=== PATIENT | female | born 1955 | race Two or more races ===

== ENCOUNTER 2024-09-22 08:50 | Day surgery (SDC) | payer MEDICARE, MEDICAID, SELFPAY ==
[2024-09-20 07:58] VITALS: BMI 30.2
[2024-09-20 08:56] LABS: Basophils % (Auto) 1 % (0-2.5); Eosinophils # (Auto) 0.6 Thou/mm3 (0.0-0.5); Eosinophils % (Auto) 7 % (0-10); Hemoglobin 14.3 g/dL (12.0-16.0); Immature Granulocytes % (Auto) 0 % (0-0); Immature Granulocytes Auto 0.03 Thou/mm3 (0.00-0.00); Lymphocytes # (Auto) 2.3 Thou/mm3 (1.0-4.8); Lymphocytes % (Auto) 29 % (10-50); Mean Corpuscular HGB Conc 32.5 g/dl (31.0-37.0); Mean Corpuscular Hemoglobin 28.7 pg (25.0-35.0); Mean Corpuscular Volume 88 fL (80-100); Monocytes # (Auto) 0.7 Thou/mm3 (0.0-0.8); Monocytes % (Auto) 9 % (0-12); Neutrophils # (Auto) 4.5 Thou/mm3 (1.8-7.7); Neutrophils % (Auto) 55 % (37-80); Nucleated Red Blood Cell % 0 /100 WBC (0); Platelet Count 272 Thou/mm3 (140-440); RDW Standard Deviation 40.7 fL (36.4-46.3); Red Blood Count 4.98 Miln/mm3 (4.00-5.20); White Blood Count 8.1 Thou/mm3 (3.6-11.0)
[2024-09-20 09:15] LABS: Alanine Aminotransferase 13 U/L (10-49); Albumin, Serum 4.6 gm/dL (3.4-4.8); Albumin/Globulin Ratio 1.8 (1.2-2.2); Alkaline Phosphatase 85 U/L (46-116); Anion Gap 6 (7-16); Aspartate Amino Transferase 14 U/L (0-34); BUN/Creatinine Ratio 22 Ratio (12-20); Bilirubin,Total 0.5 mg/dL (0.3-1.2); Blood Urea Nitrogen 13 mg/dL (9-23); Calcium 9.4 mg/dL (8.3-10.6); Calcium (Corrected) 9.4 mg/dL (8.5-10.1); Carbon Dioxide 30.2 mMol/L (20.0-31.0); Chloride 104 mMol/L (98-107); Creatinine (Component) 0.6 mg/dL (0.6-1.3); Estimated Creatinine Clearance 88.5 mL/min (>60); Globulin 2.6 gm/dL (2.3-3.5); Glucose 108 mg/dL (74-106); Osmolality,Calculated 280 (275-295); Potassium 4.3 mMol/L (3.4-5.1); Sodium 140 mMol/L (136-145); Total Protein 7.2 gm/dL (5.7-8.2); eGFR > 60 See Note
--- NOTE | 2024-09-21 14:45 | SUR.PREOP ---
Pt notified to come in at 0900 tomorrow for preop.
[2024-09-22] VITALS (8 sets, daily range): BP systolic 131–168; BP diastolic 59–75; PULSE 60–89; RESP 12–20; TEMP 36.1–36.3; O2SAT 95–100; BMI 29.9
[2024-09-22] MEDS: RINGERS LACTATED 1000 ML 1,000 ML 20 ML IV (09:54)
--- NOTE | 2024-09-22 11:09 | SUR.PHASEI ---
1109: Pt. AAOx4, vitals stable, breathing unlabored, no complaint of pain or nausea, dressing to right breast CDI, no active bleed noted, report received from MD Alberto and Phyllis SNEED.
--- NOTE | 2024-09-22 11:10 | PD.SUROPNT ---
Date of Procedure 09/22/24 Pre Op Diagnosis Right breast mass at the outer and lower quadrant Post Op Diagnosis Right breast mass at outer lower quadrant Procedure Right breast lumpectomy Findings Hard mass between 7 and 8:00 location of right breast with 2 adjacent calcified nodules Procedure Description Patient brought into the operating room in supine position. After administration of general endotracheal anesthesia, patient's right breast prepped and draped in standard surgical manner. Patient was palpated noted to have a mass at the outer and lower quadrant of right breast. After administration of local anesthesia an approximately 4 cm elliptical incision was made and circumferential flaps were raised. The underlying breast mass was circumferentially dissected out surrounding tissue. Patient was noted to have an approximately 3 cm firm mass with 2 adjacent calcified nodules. The lump of breast was removed. Marking sutures placed to orient the pathologist. The wound was washed and irrigated. Hemostasis was adequate and satisfactory. Deep breast tissue reapproximated with interrupted sutures using 2-0 Vicryl. Subcutaneous tissue closed with interrupted sutures using 2-0 Vicryl and the incision was closed with 4-0 Monocryl in subcuticular fashion. Dermabond and pressure dressings applied. Patient tolerated procedure well. She was extubated, breathing spontaneously and without difficulty and was transferred to postanesthesia care in stable condition. Instruments, needles and sponge counts were reported to be correct x 2. Anesthesia GETA and local Pathology / specimen Other (Right breast mass) Estimated Blood Loss 2 Condition Stable Disposition PACU Surgeon Luis Leonard MD Surgical Staff Operation Date: 09/22/24 11:00 Case Staff LEAD ELECTRICAL CONTROLS ENGINEER: Alexander Alberto RNspecial events coordinator: Lupe Santiago
--- NOTE | 2024-09-22 11:47 | SUR.PHASEII ---
pt awake, alert, able to follow commands, breathing unlabored, VS stable, report from Citlalli SNEED
--- NOTE | 2024-09-22 12:25 | SUR.PHASEII ---
pt awake, alert, able to follow commands, breathing unlabored, dressing to right breast clean, dry, and intact, discharge instructions given with family member present, pt able to dress self and ambulate to wheelchair with steady gait, pt discharged via wheelchair with all belongings and copies of discharge paperwork.
== END 2024-09-22 12:25 | disposition home or self-care (01) ==
PROVIDERS: Anesthesiology; PCP Family Medicine; Referring Provider Surgery; Visit Provider Surgery
PROC: (CPT 19301; principal; 2024-09-22 10:45)
DX: D05.11 Intraductal carcinoma in situ of right breast (principal)
CPT/HCPCS: 19301; 36415; 80053; 85025; A4217; A4649; J0690; J1100; J2704; J2765; J3010; J3490; J7120

== ENCOUNTER 2024-11-21 10:11 | Outpatient (RCR) | payer MEDICARE, MEDICAID, SELFPAY ==
--- NOTE | 2024-10-27 09:55 | CTCCONSULT_ITS ---
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 Darrell Giraldo MD Referring physician. Luis Leonard MD History of Present Illness: Patient is a 69-year-old lady who had previously had a negative biopsy of right breast mass in 2021, had mammogram 06/01/2024 revealing nodule right breast which she appeared solid on ultrasound 07/12/2024. Clinically this felt hard between 7 and 8:00 location with 2 calcified adjacent nodules. 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 ER/AL were both strongly positive, margins were negative for carcinoma. Reviewed by [facility] which concurred. Patient now referred for radiation therapy. Past Medical History: High blood pressure seizures history of CVA Meds. Lisinopril naproxen omeprazole Family history. Father had prostate cancer Social History: Patient is retired disabled; denies smoking drinking bilingual born in [place] lives in [place] Review of Systems: Has experienced headaches heartburn muscle pain felt breast lump Physical Exam: General: Adequate nourished appearing lady no acute distress HEENT: Atraumatic normocephalic extraocular intact no oral lesion no cervical or supraclavicular adenopathy. CV: Chest clear to auscultation regular rate and rhythm; right breast well- healed scar outer quadrant of the right breast no masses felt in either breast ABD: Soft no organomegaly or tenderness EXT: No cyanosis clubbing or edema Assessment:1. DCIS receptor positive right breast status post lumpectomy performed Dr Leonard with clear margins. 2. Radiation therapy was discussed 3 weeks 4000 cGy with possibility of 1 week E boost depending on skin reaction. Side effects discussed. 3. Estrogen modulators such as tamoxifen wth receptors being positive was discussed with patient as well. Will refer patient to medical oncologist Dr. Rhianna 4. Informed patient that recent studies suggest that someone in her age group radiation therapy is optional when on estrogen modulator since radiation therapy will improve disease-free but not overall survival. Patient opts to have radiation therapy. 5. Thank you very much for allowing me to evaluate and manage this patient. Cc: Luis Giraldo MD Electronically signed by: Juan Rodriguez MD, DABR 10/27/2024 9:53 AM
--- NOTE | 2024-10-27 10:21 | CTCTXPLN_ITS ---
[facility] [address] [place], [place] [address] Physician Clinical Treatment Planning Note Date of Service: 10/27/2024 Name: MARIANELA Jaramillo.: 1955 The patient has agreed to proceed with Radiation therapy. Tests and supporting medical records were interpreted to assist in defining the tumor location and extent of disease. Further imaging will be necessary to contour and delineate the volume to which the XRT will be provided. A. Treatment Intent: Curative B. Modality: 15 MV C. Requested Technique: 3D D. Treatment Site: Right breast E. Critical structures to be contoured on plan: F. In order to accomplish this plan, I am ordering/Prescribing the followin. Simulations (s) will be performed to accomplish a reproducible treatment position, to determine optimal treatment portals/beam arrangements, to design beam modifying devices and verify treatment portals on patient prior to the commencement of Radiation Therapy. Right breast 2. evices; for immobilization and beam shapin. CT Guidance for placement of XRT stern Scan area: 4. Portal images Frequency: 5. Invivo transit dose measurement once per week on all VMAT patients. 6. Special Physics Consult Requested for: 7. Other requests: G. Dose Objectives: Curative Electronically signed by: Juan Rodriguez M.D. 10/27/2024 10:18 AM
--- NOTE | 2024-10-27 10:23 | CTCTXPLNST_ITS ---
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 Pt Treatment Intent: curative palliative other: Stage: Procedure CPT # Ordered Spec. Procedure 75570 Bañuelos Complex (set-up) 84384 R breast/E boost 2 Bañuelos Simple 83571 1 IMRT Plan 56100 MLC Devices VMAT 45575 Bañuelos 3 D 02422 1 1TRTMT dev Complex 86091 Vaklok/2F/E boost 4 TRTMT dev simple 56326 1 Basic Sergei 23228 5 Special Dosimetry 03699 Spec Physics 60117 Port Films 91209 3 SRS Cranial/1FX 91899 SBR 5 FX or Less /ex: 5 = 5 fx 80338 IMRT Simple 22824 IMRT Complex 51934 IGRT 63391 Rad del com 6- 91867 Rad del com 11- 00833 5005 20 Cont Med Physics 07085 4 Treatment Planning 69111 1 Rad del com 20 mev 84316 Rad del inter 01-31 00525 Rad del inter 07-12 67519 Rad del simple 6- 77875 Rad del simple 07-12 83976 Special Port Plan 58673 TRTMT dev inter 61734 Isodose Complex 54575 Isodose simple 47265 Resp Motion Mgmt Simulation 22765 Placement of Fiducial Markers 30608 Electronically Signed By: Juan Rodriguez MD, LEATHAR 10/27/2024 10:21 AM
== END 2024-11-21 23:59 | disposition home or self-care (01) ==
LOC: SCTC 10:11
PROVIDERS: PCP Family Medicine; Referring Provider Surgery; Visit Provider Radiology Therapeutic Radiology
DX: Z51.0 Encounter for antineoplastic radiation therapy (principal); D05.11 Intraductal carcinoma in situ of right breast; Z17.0 Estrogen receptor positive status [ER+]; Z17.21 Progesterone receptor positive status; Z90.11 Acquired absence of right breast and nipple
CPT/HCPCS: 77014; 77280; 77290; 77295; 77300; 77334; 77412; 99213; G0463

== ENCOUNTER 2024-12-16 10:15 | Outpatient (RCR) | payer MEDICARE, MEDICAID, SELFPAY ==
--- NOTE | 2024-11-28 10:26 | CTCCONSULT_ITS ---
Patient: MARIANELA ANTHONY : 1955 MR#: [id number] Page 2 of 2 CONSULTATION NOTE DATE OF CONSULTATION: 11/28/2024 NAME: MARIANELA ANTHONY ACCOUNT: [id number] : 1955 AGE: 69 REFERRING PHYSICIAN: Darrell Giraldo MD PRIMARY PHYSICIAN: REASON FOR VISIT: New DCIS ONCOLOGY HISTORY: DIAGNOSIS: Intraductal carcinoma in situ of right breast [ICD10] D05.11 DATE OF DIAGNOSIS: 08/26/2024 PATHOLOGY: ER positive DCIS STAGE/TNM: Stage 0 DCIS TREATMENT HISTORY: Care?Plan Start?Date Cycle Day Intent anastrozole started on 11/28/2024--11/28/2029 HISTORY OF PRESENT ILLNESS: Patient is 69-year-old woman diagnosed with DCIS in August 2024. Patient had a negative biopsy of the right breast in 2021. On May 2024 patient had a nodule in the right breast. Patient had a lumpectomy which showed DCIS grade 2 ER/IN were both strongly positive and margins were negative. Patient is receiving radiation and referred to oncology for antiendocrine therapy. 69-year-old male OTHER MEDICAL HISTORY/CONDITIONS: HYPERTENSION HX?SEIZURES? HX?STROKE C SECTION X1 HYSTERECTOMY RIGHT LUMPECTOMY BIOPSY 09/22/24 FAMILY HISTORY: Father:?FATHER?HX?PROSTATE?CANCER Mother:?DENIES Sibling:?DENIES Children:?DENIES Cancer History:?RIGHT BREAST CANCER DX 09/22/24 SOCIAL HISTORY: Occupational?History:?DISABLED Education?Level:?Completed 11th grade Marital?Status:? 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 lisinopril - 20 mg Twice a Day 2. naproxen - 500 mg As directed 3. omeprazole - 40 mg Daily?Palabra Meds? Medications Last Reconciled by Megan Gomes RN on 11/28/2024 ALLERGIES: codeine phosphate; CODEINE PHOSPHATE REVIEW OF SYSTEMS: A complete 14-point review of systems was performed and is negative except as noted in interval history. PHYSICAL EXAMINATION: VITAL SIGNS: Temperature?97.8, B/P?162/88, Height?60?inches, Oxygen?Saturation?96% Weight?170?lbs PAIN: 0 - No pain ECOG Performance Status: 0 - Asymptomatic and fully active GENERAL APPEARANCE: Appears well, in no apparent distress, appropriately interactive. HEENT: Normocephalic, no temporal wasting, normal conjunctiva, no scleral icterus, normal hearing, lips without lesions, neck normal range of motion. CARDIOVASCULAR: Not assessed. PULMONARY: Normal respiratory effort, no respiratory distress or use of accessory muscles, speaking in full sentences, no tachypnea. EXTREMITIES: No pedal edema or cyanosis. SKIN: Normal skin appearance. NEUROLOGIC: Alert and oriented x4. PSHYCHIATRIC: Appropriate affect, mood normal, behavior normal, intact thought and speech. Breast examination showed well-healing surgical site. No palpable masses in either breast LABORATORY DATA: I have personally reviewed and interpreted each of the patient?s relevant lab tests, abnormal findings are below: Date ASSESSMENT/PLAN: Right breast DCIS Agree with lumpectomy and radiation Advised patient to start anastrozole once radiation is complete Calcium and vitamin D3 daily Plan for total 5 years for prophylaxis RTC in I will see her back in the clinic in 3 months. Patient to start anastrozole once radiation is complete ORDERS: Order # Description [id number] Comprehensive Metabolic Panel - 12 + CBC with Auto Diff + [id number] DXA L-Spine and Hip [id number] Follow Up 3 Months RETURN TO CLINIC: I will see her back in the clinic in 3 months. BILLING AND COMPLIANCE: I reviewed external records from providers outside my specialty as summarized above. I spent a total of 50 minutes on this patient?s care on the day of their visit excluding time spent related to any billed procedures. This time includes time spent with the patient as well as time spent documenting in the medical record, reviewing patients records and tests, obtaining history, placing orders, communicating with other healthcare professionals, counseling the patient, family or caregiver, and/or care coordination for the diagnoses above. Electronically Signed by: Quinn Moctezuma MD T: 10:23 AM CC: PCP: Referring: Darrell Giraldo This document was completed utilizing speech recognition software. Grammatical errors, random word insertions, pronoun errors, and incomplete sentences are an occasional consequence of this system due to software limitations, ambient noise, and hardware issues. Any formal questions or concerns about the content, text or information contained within the body of this dictation should be directly addressed to the provider for clarification.
--- NOTE | 2024-12-12 10:57 | CTCTRTNOTE_ITS ---
[facility] [address] [place], [place] [address] Weekly Management Date: 12/12/2024 ?? Name: MARIANELA JEFFRIESDO Jaramillo.: 1955 A. Patient is currently at 200 cGy. Getting final boost B. Patient is tolerating treatment well. C. Resume radiation therapy. Completes XRT this Thursday. Electronically signed by: Juan Rodriguez M.D. 12/12/2024 10:54 AM
== END 2024-12-21 23:59 | disposition home or self-care (01) ==
LOC: SCTC 10:15
PROVIDERS: PCP Family Medicine; Referring Provider Family Medicine; Visit Provider Internal Medicine Hematology & Oncology
DX: Z51.0 Encounter for antineoplastic radiation therapy (principal); D05.11 Intraductal carcinoma in situ of right breast; Z17.0 Estrogen receptor positive status [ER+]
CPT/HCPCS: 77290; 77300; 77332; 77336; 77412; 77417; 99213; G0463

== ENCOUNTER → 2025-01-02 | Outpatient (CLI) | payer MEDICARE, MEDICAID, SELFPAY ==
--- NOTE | 2025-01-02 14:00 | XR_ITS ---
Examination: Bone densitometry Date and time of exam:January 02, 2025 1437 hours INDICATIONS: Hysterectomy age 40 Technique: Lumbar spine and hip total bone mineralization values of an calculated. Peak reference and age match control results have been displayed. Findings: Lumbar spine total bone mineralization is0.801 gm/cm2. This is 2.2 standard deviations below peak reference. This is 0.2 standard deviations below age-matched controls. Hip total bone mineralization is 0.837 gm/cm2 This is 0.9 standard deviations below peak reference. This is 0.4 standard deviations above age-matched controls Impression: There is osteopenia based on lumbar spine measurements. There is osteoporosis based on hip measurements
== END | disposition home or self-care (01) ==
LOC: CDIM 13:48
PROVIDERS: Referring Provider Internal Medicine Hematology & Oncology; Visit Provider Internal Medicine Hematology & Oncology
DX: M85.88 Other specified disorders of bone density and structure, other site (principal); M81.0 Age-related osteoporosis without current pathological fracture
CPT/HCPCS: 77080

== ENCOUNTER 2025-01-18 13:57 | Outpatient (RCR) | payer MEDICARE, MEDICAID, SELFPAY ==
--- NOTE | 2024-12-29 10:20 | CTCTSUMM_ITS ---
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 (C) Concomitant Chemotherapy: No (D) Radiation DatesTreatment Prescription (9) E boost Electron boost 15 MeV E- 1,000 cGy 5 200 cGy Approved R breast 2 FIELD SEG Mixed Mode 4,005 cGy 15 267 cGy Approved (E) All stern were treated using customized MLC Blocks (F) Finding at Discharge: Seen for first follow-up on 12/29/2024. There was good skin reaction which was being recovered from the time off. (G) Discharge Instructions and F/U Appt was given: The patient was also advised to continue follow-up with Dr. Moctezuma and primary care physician: cc: Darrell Leonard MD Electronically signed by: Juan Rodriguez MD, LEATHAR 12/29/2024 10:17 AM
== END 2025-01-21 23:59 | disposition home or self-care (01) ==
LOC: SCTC 13:57
PROVIDERS: PCP Family Medicine; Referring Provider Family Medicine; Visit Provider Internal Medicine Hematology & Oncology
DX: D05.11 Intraductal carcinoma in situ of right breast (principal)
CPT/HCPCS: 99213; G0463

== ENCOUNTER 2025-02-27 13:39 | Outpatient (RCR) | payer MEDICARE, MEDICAID, SELFPAY ==
--- NOTE | 2025-03-05 07:05 | CTCFLWUP_ITS ---
Patient: BLANCA ANTHONY : 1955 Page 4 of 6 FOLLOW UP NOTE DATE OF SERVICE: 02/27/2025 NAME: BLANCA ANTHONY ACCOUNT: [id number] : 1955 AGE: 69 INTERVAL HISTORY: Blanca Anthony, a female with history of stage 0 breast cancer (DCIS positive), presented with pain during daily activities and for osteoporosis follow-up. She recently completed radiation therapy. December 2024 bone density test showed osteoporosis in hips and osteopenia in spine. Plan includes Prolia in jections every 6 months pending dental clearance, continued calcium and vitamin D supplements, right breast mammogram, lymphedema clinic referral, and activity modifications to reduce right arm strain. Subjective: Chief Complaint - Pain when grooming, mopping, washing dishes, and doing laundry - Follow-up for osteoporosis and breast cancer treatment Objective: Laboratory, Imaging, and Diagnostic Test Results - Bone density test (December 2024): - Hips: Osteoporosis - Spine: Osteopenia - Mammogram (May 2024): Completed (right breast) ONCOLOGY HISTORY: DIAGNOSIS: Intraductal carcinoma in situ of right breast [ICD10] D05.11 DATE OF DIAGNOSIS: 08/26/2024 PATHOLOGY: ER positive DCIS STAGE/TNM: Stage 0 DCIS TREATMENT HISTORY: Care?Plan Start?Date Cycle Day Intent PROLia?60mg?every?6?months 02/27/2025 1 180 Maintenance HISTORY OF PRESENT ILLNESS: Patient is 69-year-old woman diagnosed with DCIS in August 2024. Patient had a negative biopsy of the right breast in 2021. On May 2024 patient had a nodule in the right breast. Patient had a lumpectomy which showed DCIS grade 2 ER/WA were both strongly positive and margins were negative. Patient is receiving radiation and referred to oncology for antiendocrine therapy. 69-year-old male OTHER MEDICAL HISTORY/CONDITIONS: HYPERTENSION HX?SEIZURES HX?STROKE C SECTION X1 HYSTERECTOMY RIGHT LUMPECTOMY BIOPSY 09/22/24 FAMILY HISTORY: Father:?FATHER?HX?PROSTATE?CANCER Mother:?DENIES Sibling:?DENIES Children:?DENIES Cancer History:?RIGHT BREAST CANCER DX 09/22/24 SOCIAL HISTORY: Occupational?History:?DISABLED Education?Level:?Completed 11th grade Marital?Status:? 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 anastrozole - 1 mg 1 tab Daily 2. lisinopril - 20 mg Twice a Day 3. naproxen - 500 mg As directed 4. omeprazole - 40 mg Daily 5. TylenoL - 500 mg 1 tab As needed Medications Last Reconciled by Ida Herrmann MA on 02/27/2025 ALLERGIES: codeine phosphate; CODEINE PHOSPHATE REVIEW OF SYSTEMS: A complete 14-point review of systems was performed and is negative except as noted in interval history. PHYSICAL EXAMINATION: VITAL SIGNS: Temperature?97.4, B/P?152/90, Oxygen?Saturation?97% PAIN: 8 - Very severe pain ECOG Performance Status: 1 - Symptomatic; ambulatory; restricted in strenuous activity GENERAL APPEARANCE: Appears well, in no apparent distress, appropriately interactive. HEENT: Normocephalic, no temporal wasting, normal conjunctiva, no scleral icterus, normal hearing, lips without lesions, neck normal range of motion. CARDIOVASCULAR: Not assessed. PULMONARY: Normal respiratory effort, no respiratory distress or use of accessory muscles, speaking in full sentences, no tachypnea. EXTREMITIES: No pedal edema or cyanosis. SKIN: Normal skin appearance. NEUROLOGIC: Alert and oriented x4. PSHYCHIATRIC: Appropriate affect, mood normal, behavior normal, intact thought and speech. Breast examination showed well-healing surgical site. No palpable masses in either breast LABORATORY DATA: I have personally reviewed and interpreted each of the patient?s relevant lab tests, abnormal findings are below: Date ASSESSMENT/PLAN: Assessment and Plan: Blanca Anthony, female patient with history of stage 0 breast cancer (DCIS positive), recently completed radiation therapy, presenting with osteoporosis in hips and osteopenia in spine, experiencing pain with daily activities. Discomfort and pain from lymphedema Patient have pain and discomfort in right arm Plan ? refer to lymphedema clinic No redness or loacalised tenderness . Osteoporosis/Osteopenia Assessment: Recent bone density test in revealed osteoporosis in the hips and osteopenia in the spine, with particular weakness noted in the hips. Patient has not yet obtained dental clearance for medication initiation but has an upcoming dental appointment this month. No reported dental problems. Plan: - Prescribe Prolia (denosumab) injection every 6 months for 5 years - Continue calcium and vitamin D supplements daily - Obtain dental clearance before initiating Prolia - Patient to call dental office to complete clearance form - Initiate Prolia upon receipt of dental clearance Stage 0 Breast Cancer (DCIS positive) - Post-treatment Assessment: Patient has completed radiation therapy for stage 0 breast cancer with positive DCIS. Treatment was well-tolerated. Patient reports pain when performing daily activities such as grooming, mopping, washing dishes, and doing laundry, particularly with the right arm. Plan: - Order mammogram for right breast (6-month post-treatment follow-up) - Refer to lymphedema clinic for massage therapy - Advise patient to: - Avoid lifting heavy objects with the right arm - Perform tasks slowly, especially with the right hand - Use left hand or wheeled laundry basket for laundry - Avoid heavy work - Cook, but minimize use of right hand - Follow-up appointment in 6 months If pain/discomfort do not get better advised to follow with pcp/er For other casues of pain including dvt . 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 We also discussed the option of no treatment and the possibility of clinical trial participation, if applicable. All questions were addressed, and they demonstrated understanding. They provided informed consent to proceed with the proposed plan of care. BILLING AND COMPLIANCE: I reviewed external records from providers outside my specialty as summarized above. I spent a total of 50 minutes on this patient?s care on the day of their visit excluding time spent related to any billed procedures. This time includes time spent with the patient as well as time spent documenting in the medical record, reviewing patients records and tests, obtaining history, placing orders, communicating with other healthcare professionals, counseling the patient, family or caregiver, and/or care coordination for the diagnoses above. Electronically Signed by: Quinn Moctezuma MD T: 7:02 AM CC: PCP: Referring: Darrell Giraldo This document was completed utilizing speech recognition software. Grammatical errors, random word insertions, pronoun errors, and incomplete sentences are an occasional consequence of this system due to software limitations, ambient noise, and hardware issues. Any formal questions or concerns about the content, text or information contained within the body of this dictation should be directly addressed to the provider for clarification.
== END 2025-03-23 23:59 | disposition home or self-care (01) ==
LOC: SCTC 13:39
PROVIDERS: PCP Family Medicine; Referring Provider Family Medicine; Visit Provider Internal Medicine Hematology & Oncology
DX: D05.11 Intraductal carcinoma in situ of right breast (principal); Z17.0 Estrogen receptor positive status [ER+]; Z17.21 Progesterone receptor positive status; Z90.11 Acquired absence of right breast and nipple; Z79.811 Long term (current) use of aromatase inhibitors; Z92.3 Personal history of irradiation; M81.0 Age-related osteoporosis without current pathological fracture; I89.0 Lymphedema, not elsewhere classified
CPT/HCPCS: 99212; G0463

== ENCOUNTER → 2025-03-22 | Outpatient (CLI) | payer MEDICARE, MEDICAID, SELFPAY ==
--- NOTE | 2025-03-22 10:15 | XR_ITS ---
Examination: Screening digital mammography, unilateral right Computer aided detection 3-D breast Tomosynthesis, unilateral Date and time of exam: March 22, 2025 1031 hours Compared to mammograms dating to May 02, 2015 Indication: Screening Technique: Nonmagnified MLO, CC views of the right breast to been obtained, reconstructed from 3-D Tomosynthesis images. R2 computer aided detection program utilized for evaluation of suspicious masses and/or abnormal calcifications. 3-D Tomosynthesis images obtained. Findings: Scattered areas of fibrovascular density. Breast biopsy marker upper outer right breast Benign calcifications, no definite suspicious masses Impression: BI-RADS Category 0: Incomplete: Need additional imaging evaluation Given the the right breast sonogram report July 12, 2024, 8:00 nodule 17 x 13 mm, 9:00 nodule 12 x 13 mm, 9:00 nodule 9 x 9 mm, 10:00 nodule 8 x 7 mm, recommend follow-up right breast sonography to document stability of these nodules.
== END | disposition home or self-care (01) ==
PROVIDERS: PCP Family Medicine; Referring Provider Internal Medicine Hematology & Oncology; Visit Provider Internal Medicine Hematology & Oncology
DX: Z12.31 Encounter for screening mammogram for malignant neoplasm of breast (principal); N63.15 Unspecified lump in the right breast, overlapping quadrants; N63.21 Unspecified lump in the left breast, upper outer quadrant; N63.13 Unspecified lump in the right breast, lower outer quadrant
CPT/HCPCS: 77063; 77067

== ENCOUNTER → 2025-04-11 | Outpatient (CLI) | payer MEDICARE, MEDICAID, SELFPAY ==
--- NOTE | 2025-04-11 08:39 | XR_ITS ---
Examination: Foot, right, 3 views Technique: AP, oblique, lateral views foot, 3 views Date and time of exam: April 11, 2025 0842 hours INDICATIONS: Injury to the foot 3 days ago with foot pain FINDINGS: Mild narrowing first metatarsophalangeal joint No acute fracture No dislocation IMPRESSION: No acute fracture
== END | disposition home or self-care (01) ==
LOC: SDIM 08:30
PROVIDERS: PCP Nurse Practitioner; Referring Provider Nurse Practitioner; Visit Provider Nurse Practitioner
DX: S99.921A Unspecified injury of right foot, initial encounter (principal); X58.XXXA Exposure to other specified factors, initial encounter
CPT/HCPCS: 73630

== ENCOUNTER 2025-07-06 09:17 | Outpatient (RCR) | payer MEDICARE, MEDICAID, SELFPAY ==
--- NOTE | 2025-07-06 09:59 | CTCFLWUP_ITS ---
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 Patient with DCIS right breast underwent partial mastectomy and postoperation therapy completed 12/17/2025. Patient received 4005 cGy to the entire right breast tissue and 1000 E boost. Electronically signed by: Juan Rodriguez M.D. 07/06/2025 9:57 AM
--- NOTE | 2025-07-06 10:01 | CTCFLWUP_ITS ---
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 Has good cosmetic result from the treated right breast tissue. On anastrozole being followed by Dr. Moctezuma. I will see her as needed in the future. Electronically signed by: Juan Rodriguez M.D. 07/06/2025 9:58 AM
== END 2025-07-23 23:59 | disposition home or self-care (01) ==
LOC: SCTC 09:17
PROVIDERS: PCP Nurse Practitioner; Referring Provider Nurse Practitioner; Visit Provider Radiology Therapeutic Radiology
DX: D05.11 Intraductal carcinoma in situ of right breast (principal); Z90.11 Acquired absence of right breast and nipple; Z79.811 Long term (current) use of aromatase inhibitors
CPT/HCPCS: 99213; G0463

== ENCOUNTER → 2025-07-10 | Outpatient (CLI) | payer MEDICARE, MEDICAID, SELFPAY ==
--- NOTE | 2025-07-10 09:00 | XR_ITS ---
Examination: Breast ultrasound, unilateral, right Date and time of exam: July 10, 2025, 0922 hours, comparison July 12, 2024 INDICATIONS: Right breast biopsy May 05, 2022 negative, right breast sonogram July 12, 2024 9:00 nodule 12 mm 8:00 nodule 13 mm 10:00 nodule 8 mm Technique: Real-time hebert scale ultrasonographic imaging performed right breast including all 4 quadrants as well as nipple retroareolar and axillary region. Findings: 8:00 nodule lobular margins 5 x 7 mm 9:00 nodule 7 x 4 mm, 5 x 6 mm, 10:00 nodule 6 x 8 mm IMPRESSION: BI-RADS Category 3: Probably benign findings Recommend 1 additional 6-month right breast sonogram follow-up to document stability of multiple solid nodules described above
== END | disposition home or self-care (01) ==
LOC: CDIM 08:47
PROVIDERS: PCP Family Medicine; Referring Provider Internal Medicine Hematology & Oncology; Visit Provider Internal Medicine Hematology & Oncology
DX: N63.15 Unspecified lump in the right breast, overlapping quadrants (principal); N63.13 Unspecified lump in the right breast, lower outer quadrant
CPT/HCPCS: 76641